=== PATIENT | male | born 1955 | race Caucasian/White ===

== ENCOUNTER 2024-01-12 21:01 | Emergency (ER) | payer MEDICARE ==
[~2024-01-12] VITALS: Ht 175.2 cm; Wt 99.8 kg
[2024-01-12 21:17] LABS: BASO % 0.7 % (0.0-1.0); EOS % 0.5 % (1.0-4.0); HEMATOCRIT 37.5 % (42.0-52.0); LYMPH # 1.2 10*3/uL (1.3-4.4); LYMPH % 26.2 % (27.0-41.0); MEAN CELL VOLUME 95.2 fl (80.0-94.0); MEAN CORPUSCULAR HGB CONC 34.7 g/dl (33.0-37.0); MEAN PLATELET VOLUME 9.7 fl (9.6-12.3); MONO # 0.3 10*3/uL (0.1-1.0); NEUT # 2.9 10*3/uL (2.3-7.9); NEUT % 65.4 % (47.0-73.0); PLATELET COUNT AUTOMATED 141 10*3/uL (130-400); RED BLOOD COUNT 3.94 10*6/uL (4.50-5.90); RED CELL DISTRI WIDTH 12.5 % (0-14.5); WHITE BLOOD COUNT 4.4 10*3/uL (4.8-10.8)
[2024-01-12 22:00] LABS: BUN 18 mg/dl (9-23); CHLORIDE 92 mmol/L (98-107); CPK 78 U/L (34-171); POTASSIUM 3.6 mmol/L (3.4-5.1)
[2024-01-12 22:02] LABS: ETHYL ALCOHOL 416.3 mg/dl (<3)
[2024-01-13] MEDS ORDERED: Bacitracin Zinc 14 GM TUBE T ONE (06:00)
== END 2024-01-13 07:07 | disposition home or self-care (01) ==
LOC: ED 21:01
PROVIDERS: Internal Medicine
DX: S01.81XA Laceration without foreign body of other part of head, initial encounter (principal); M25.511 Pain in right shoulder; F10.129 Alcohol abuse with intoxication, unspecified; Y90.8 Blood alcohol level of 240 mg/100 ml or more; W19.XXXA Unspecified fall, initial encounter; Y93.89 Activity, other specified; Y92.009 Unspecified place in unspecified non-institutional (private) residence as the place of occurrence of the external cause; Y99.8 Other external cause status

== ENCOUNTER 2024-03-02 15:49 | Inpatient (IN) | payer MEDICARE ==
[~2024-03-02] VITALS: Ht 177.8 cm; Wt 76.2 kg
[2024-03-02 16:04] VITALS: BP 80/36
[2024-03-02] MEDS ORDERED: SODIUM CHLORIDE 0.9% 1,000 ML IV ONE ×3 (16:15→21:20)
[2024-03-02] MEDS ORDERED: Thiamine 100 MG TAB PO ONE (16:25)
[2024-03-02 16:44] LABS: BASO % 0.3 % (0.0-1.0); EOS # 0.2 10*3/uL (0.0-0.4); EOS % 2.9 % (1.0-4.0); HEMATOCRIT 30.4 % (42.0-52.0); LYMPH # 0.4 10*3/uL (1.3-4.4); LYMPH % 7.4 % (27.0-41.0); MEAN CELL VOLUME 105.9 fl (80.0-94.0); MEAN CORPUSCULAR HGB 35.5 pg (27.0-31.0); MEAN CORPUSCULAR HGB CONC 33.6 g/dl (33.0-37.0); MEAN PLATELET VOLUME 9.9 fl (9.6-12.3); MONO # 0.3 10*3/uL (0.1-1.0); MONO % 5.3 % (3.0-9.0); NEUT # 4.9 10*3/uL (2.3-7.9); NEUT % 83.8 % (47.0-73.0); PLATELET COUNT AUTOMATED 242 10*3/uL (130-400); RED BLOOD COUNT 2.87 10*6/uL (4.50-5.90); RED CELL DISTRI WIDTH 12.4 % (0-14.5); WHITE BLOOD COUNT 5.9 10*3/uL (4.8-10.8)
[2024-03-02 17:01] LABS: ETHYL ALCOHOL 199.3 mg/dl (<3); POTASSIUM 4.2 mmol/L (3.4-5.1); TOTAL PROTEIN 6.3 gm/dL (6.0-8.0)
[2024-03-02 18:52] VITALS: BP 112/47
[2024-03-02 19:29] LABS: BILIRUBIN Negative (Negative); BLOOD Negative (Negative); CLARITY Clear (Clear); COLOR Yellow (Yellow); GLUCOSE Negative (Negative); KETONE 1+ (Negative); LEUKO ESTERASE Negative (Negative); NITRITE Negative (Negative); PH 5.5 (4.5-8.0)
[2024-03-02 19:30] VITALS: BP 119/62
[2024-03-02 19:40] LABS: URINE AMPHETAMINES Negative (1000ng/ml); URINE BARBITURATES Negative (200ng/ml); URINE BENZODIAZEPINES Negative (200ng/ml); URINE CANNABINOIDS (THC) Negative (50ng/ml); URINE COCAINE Negative (300ng/ml); URINE METHADONE Negative (300ng/ml); URINE OPIATES Negative (300ng/ml); URINE PHENCYCLIDINE Negative (25ng/ml)
[2024-03-02 19:59] LABS: POTASSIUM 4.1 mmol/L (3.4-5.1)
[2024-03-02 20:03] LABS: BACTERIA TRACE; MUCOUS 1+; WBC 0-2 wbc/hpf (0-5)
[2024-03-02] MEDS ORDERED: hydrOXYzine 50 MG CAP PO PRN (21:10)
[2024-03-02] MEDS ORDERED: METHOCARBAMOL 750 MG TAB PO PRN (21:10)
[2024-03-02] MEDS ORDERED: Magnesium Hydroxide 30 ML UDC PO PRN (21:10)
[2024-03-02] MEDS ORDERED: BISACODYL 10 MG SUPP R PRN (21:10)
[2024-03-02] MEDS ORDERED: ACETAMINOPHEN 650 MG SUPP R PRN (21:10)
[2024-03-02] MEDS ORDERED: TEMAZEPAM 15 MG CAP PO PRN (21:10)
[2024-03-02] MEDS ORDERED: Dicyclomine Hydrochloride 20 MG TAB PO PRN (21:10)
[2024-03-02] MEDS ORDERED: BISACODYL 5 MG TAB PO PRN (21:10)
[2024-03-02] MEDS ORDERED: ACETAMINOPHEN 325 MG TAB PO PRN (21:10)
[2024-03-02] MEDS ORDERED: LORazepam 1 MG TAB PO SCH (22:00)
[2024-03-02] MEDS ORDERED: HEPARIN SODIUM 5,000 UNIT/ML VIAL SC SCH (22:00)
[2024-03-02] MEDS ORDERED: SODIUM CHLORIDE 0.9% IV ONE (22:31)
[2024-03-02] MEDS ORDERED: THIAMINE IV ONE (22:31)
[2024-03-03] VITALS (8 sets, daily range): BP systolic 107–132; BP diastolic 57–70
[2024-03-03 00:28] LABS: POTASSIUM 4.1 mmol/L (3.4-5.1)
[2024-03-03] MEDS ORDERED: DEXTROSE 5% SALINE 0.9% 1,000 ML IV SCH (01:00)
[2024-03-03 07:03] LABS: BASO % 0.4 % (0.0-1.0); EOS % 0.6 % (1.0-4.0); HEMATOCRIT 27.6 % (42.0-52.0); LYMPH # 0.4 10*3/uL (1.3-4.4); LYMPH % 8.2 % (27.0-41.0); MEAN CELL VOLUME 106.2 fl (80.0-94.0); MEAN CORPUSCULAR HGB 35.4 pg (27.0-31.0); MEAN CORPUSCULAR HGB CONC 33.3 g/dl (33.0-37.0); MEAN PLATELET VOLUME 9.9 fl (9.6-12.3); MONO # 0.4 10*3/uL (0.1-1.0); MONO % 6.9 % (3.0-9.0); NEUT # 4.3 10*3/uL (2.3-7.9); NEUT % 83.5 % (47.0-73.0); PLATELET COUNT AUTOMATED 201 10*3/uL (130-400); RED CELL DISTRI WIDTH 12.6 % (0-14.5); WHITE BLOOD COUNT 5.1 10*3/uL (4.8-10.8)
[2024-03-03 07:31] LABS: FREE T4 0.99 ng/dl (0.89-1.76); POTASSIUM 3.8 mmol/L (3.4-5.1); TOTAL PROTEIN 5.8 gm/dL (6.0-8.0)
[2024-03-03 07:42] LABS: VITAMIN D, 25-HYDROXY 13.5 ng/mL (30-100)
[2024-03-03] MEDS ORDERED: Thiamine 100 MG TAB PO SCH (10:00)
[2024-03-03] MEDS ORDERED: MULTIVITAMIN 1 TAB TAB PO SCH (10:00)
[2024-03-03] MEDS ORDERED: FOLIC ACID 1 MG TAB PO SCH (10:00)
[2024-03-03] MEDS ORDERED: Thiamine 200 MG/2 ML VIAL ONE (21:47)
[2024-03-04] MEDS ORDERED: LORazepam 1 MG TAB PO SCH
[2024-03-04 00:33] VITALS: BP 82/34
[2024-03-04 01:18] VITALS: BP 89/34
[2024-03-04 01:39] VITALS: BP 90/38
[2024-03-04 02:44] VITALS: BP 88/37
[2024-03-04 07:37] LABS: BASO % 0.8 % (0.0-1.0); EOS # 0.1 10*3/uL (0.0-0.4); EOS % 1.4 % (1.0-4.0); HEMATOCRIT 28.2 % (42.0-52.0); LYMPH # 1.1 10*3/uL (1.3-4.4); LYMPH % 22.9 % (27.0-41.0); MEAN CELL VOLUME 105.2 fl (80.0-94.0); MEAN CORPUSCULAR HGB 36.2 pg (27.0-31.0); MEAN CORPUSCULAR HGB CONC 34.4 g/dl (33.0-37.0); MONO # 0.5 10*3/uL (0.1-1.0); MONO % 10.7 % (3.0-9.0); NEUT # 3.1 10*3/uL (2.3-7.9); PLATELET COUNT AUTOMATED 157 10*3/uL (130-400); RED BLOOD COUNT 2.68 10*6/uL (4.50-5.90); RED CELL DISTRI WIDTH 12.7 % (0-14.5); WHITE BLOOD COUNT 4.9 10*3/uL (4.8-10.8)
[2024-03-04 07:54] VITALS: BP 114/62
[2024-03-04 08:00] VITALS: BP 114/81
[2024-03-04 08:24] LABS: CHLORIDE 108 mmol/L (98-107); POTASSIUM 3.6 mmol/L (3.4-5.1)
[2024-03-04 08:59] LABS: BUN 25 mg/dl (9-23)
[2024-03-04] MEDS ORDERED: Cholecalciferol 2,000 UNIT TABLET (50 MCG) PO SCH (10:00)
[2024-03-04] MEDS ORDERED: Enoxaparin Sodium 40 MG/0.4 ML SYR SC SCH (10:00)
[2024-03-04] MEDS ORDERED: VITAMIN D350 MCG PO (11:20)
[2024-03-04] MEDS ORDERED: THIAMINE HCL100 MG PO (11:20)
[2024-03-04] MEDS ORDERED: LORazepam 1 MG TAB PO PRN (18:00)
== END 2024-03-04 11:39 | disposition home or self-care (01) | DRG 917 ==
LOC: ED 15:49 → EDHOLD 20:59
PROVIDERS: Internal Medicine; Student in an Organized Health Care Education/Training Program; ADMIT Internal Medicine; ATTEND Internal Medicine
DX: T51.91XA Toxic effect of unspecified alcohol, accidental (unintentional), initial encounter (principal); G92.8 Other toxic encephalopathy; N17.0 Acute kidney failure with tubular necrosis; E51.2 Wernicke's encephalopathy; E44.0 Moderate protein-calorie malnutrition; E87.29 Other acidosis; E87.1 Hypo-osmolality and hyponatremia; E86.0 Dehydration; I10 Essential (primary) hypertension; E78.5 Hyperlipidemia, unspecified; F10.920 Alcohol use, unspecified with intoxication, uncomplicated; D53.9 Nutritional anemia, unspecified; R73.9 Hyperglycemia, unspecified; R74.01 Elevation of levels of liver transaminase levels; E55.9 Vitamin D deficiency, unspecified; F32.9 Major depressive disorder, single episode, unspecified; Z83.3 Family history of diabetes mellitus; Z68.24 Body mass index [BMI] 24.0-24.9, adult